=== PATIENT | female | born 1990 | race Caucasian/White ===

== ENCOUNTER 2020-05-04 07:32 | Inpatient (IN) | payer BC, SELFPAY ==
[2020-05-04] VITALS (24 sets, daily range): BP systolic 102–140; BP diastolic 52–85; PULSE 65–193; RESP 16; TEMP 36.6–37.1; BMI 28.3
[2020-05-04 08:41] LABS: Basophils Percent Auto 0.3 % (0.2-1.2); Eosinophils Absolute Auto 0.1 K/mm3 (0-0.3); Eosinophils Percent Auto 0.4 % (0-4.4); Hematocrit 34.4 % (37.0-47.0); Hemoglobin 11.8 g/dL (12.0-15.0); Immature Granulocyte Absolute 0.09 K/mm3 (0.00-0.031); Immature Granulocyte Percent A 0.8 % (0-0.5); Lymphocytes Percent Auto 24.5 % (18.3-44.2); Mean Corpuscular HGB Conc 34.3 g/dl (32-36); Mean Corpuscular Hemoglobin 31.7 pg (26-34); Mean Corpuscular Volume 92.5 fl (80-100); Mean Platelet Volume 9.5 fl (7.4-10.4); Monocytes Absolute Auto 0.8 K/mm3 (0.1-0.6); Monocytes Percent Auto 6.8 % (2.6-8.5); Neutrophils Absolute Auto 7.7 K/mm3 (1.3-6.7); Neutrophils Percent Auto 67.2 % (45.5-73.1); Platelet Count Result 299 k/mm3 (150-375); Red Blood Count 3.72 M/mm3 (4.2-5.4); Red Cell Distribution Width 12.2 % (11.5-14.5); White Blood Count 11.4 K/mm3 (4.5-10.0)
--- NOTE | 2020-05-04 08:42 | LDADM ---
This patient, Ruben Garces, was admitted to Labor/Delivery/Recovery 106 on 05/04/20 at 07:32. Plans for labor, pain management and were discussed with patient. Patient/family oriented to hospital policies and general routines including ID bracelet, bed and alarms, visiting hours, pain management, procedures, bathroom and other care routines, personal items, smoking policy, room service/diet and guest tray routines, security routines, and visiting hours. Patient/Family are encouraged to report perceived risks to care and to ask questions if they do not understand what they are told or what they should do. See OBIX for further documentation.
--- NOTE | 2020-05-04 11:03 | WPDOBADMIT ---
Obstetrics - Admit Note Admission Note: record reviewed. No pertinent additions to the history and/or any subsequent changes in the physical findings that are not consistent with the expected course of the were found. Additions to the history and/or subsequent changes in the physical findings follow. None.Here with [facility] in labor. Now 4 cm.
[2020-05-04] MEDS: OXYTOCIN 30 UNITS/NS 500 ML 30 UNITS/500 ML BAG IV CONT (16:23)
[2020-05-04] MEDS: LACTATED RINGERS 1,000 ML 125 ML IV CONT (16:23)
--- NOTE | 2020-05-04 16:32 | PM.OBPRVD ---
OB - Delivery Note Procedure Delivery date: 05/04/20 events: Labor Induction Intrapartal events: None Induction method: none Delivery monitor: external FHT and external uterine Route of delivery: Laceration description: Perineal - 2nd Degree Delivery repair: vicryl (3-0 vicryl) Specimen: No Estimated blood loss (mL): 100 Anesthesia type: Local Disposition: floor Baby Weeks of gestation at delivery: 38 gender: Male presentation: vertex Placenta delivery description: Spontaneous cord vessel description: 3 Vessels and Around Extremity x1 (foot) score one minute: 9 score five minutes: 9
--- NOTE | 2020-05-04 16:35 | P.DS_ITS ---
DS: Admitting Diagnosis Admitting Diagnosis Admitting Diagnosis: Labor DS: Discharge Diagnosis Discharge Diagnosis (1) (normal spontaneous vaginal delivery): Code(s): O80 - Encounter for full-term uncomplicated delivery Status: Acute OB - DS: Summary OB Procedures : Ultrasound OB Procedures Intrapartum: Spontaneous Vag Delivery OB Procedures: : None Peripartum Data Infant Delivery Method: Natural Vaginal Laceration description: Perineal - 2nd Degree complications: none Status at Discharge Functional status at discharge: independent ambulation Overall status at discharge: patient is progressing back to baseline Time Spent with Patient Time attestation: Total time spent providing and/or coordinating discharge services: DS: Data Data Completed and Pending Labs on day of discharge: Labs from last 24 hours 05/04/20 05/04/20 05/04/20 08:28 08:28 08:28 WBC 11.4 H RBC 3.72 L Hgb 11.8 L Hct 34.4 L MCV 92.5 MCH 31.7 MCHC 34.3 RDW 12.2 Plt Count 299 MPV 9.5 Immature Gran % (Auto) 0.8 H Neut % (Auto) 67.2 Lymph % (Auto) 24.5 [place] % (Auto) 6.8 Eos % (Auto) 0.4 Baso % (Auto) 0.3 Lymph # (Auto) 2.80 [place] # (Auto) 0.8 H Eos # (Auto) 0.1 Baso # (Auto) 0.0 Abs Immat Gran (auto) 0.09 H Absolute Neuts (auto) 7.7 H Absolute Nucleated RBC 0.0 Nucleated RBC % 0.0 RPR Pending Blood Type O Positive Antibody Screen Negative Discharge Plan Discharge Attending physician on discharge: Ericka Whitney Discharging Clinician: Ericka Whitney Anticipated Discharge Date/Time: 05/06/20 16:35 Patient Disposition: Home, Self-Care Activity: may shower and pelvic rest Diet: regular Patient Instructions: Antibiotic Form Stand Alone Forms: General Discharge Information Follow-up/Referrals: Ericka Whitney MD [Physician] - 6 Weeks Discharge Medications: New norethindrone (contraceptive) 0.35 mg tablet 0.35 mg PO DAILY Qty: 84 RF: 3 Continued docusate sodium [Colace] 100 mg Capsule 100 mg PO DAILY RF: 0 PNV cmb#95-ferrous fumarate-FA [] 28 mg iron- 800 mcg Tablet 1 tablet PO DAILY RF: 0 Fiber Gummies 2 gram Tablet,Chewable 2 g PO RF: 0 Digestive Health Probiotic 10 billion cell Capsule 2 cap PO RF: 0 ergocalciferol (vitamin D2) [Vitamin D2] 1,250 mcg (50,000 unit) Capsule 1,250 mcg PO 2XW RF: 0 Discontinued ferrous sulfate 325 mg (65 mg iron) Tablet 325 mg PO BID RF: 0 Date of admission: 05/04/20 07:32 Primary Care Provider: Blanca,Kelsie De La Cruz Admitting Provider: Ericka Whitney Attending physician on admission: Ericka Whitney Condition: Stable
[2020-05-04] MEDS: OXYTOCIN 30 UNITS/NS 500 ML 30 UNITS/500 ML BAG 125 UNITS IV CONT (16:58)
[2020-05-04] MEDS: WITCH HAZEL 40 PADS 1 PAD TOPICAL (19:00)
[2020-05-04] MEDS: BENZOCAINE 20% AER SPR (*SP) 56 GM CAN 1 SPRAY TOPICAL (19:01)
[2020-05-05 05:34] LABS: Hematocrit 35.3 % (37.0-47.0); Hemoglobin 11.9 g/dL (12.0-15.0)
--- NOTE | 2020-05-05 07:15 | PC.NURSE ---
PT introductions made and plan of care discussed per post , pain management, breast pumping, bottle feeding, daily care activities. PT verbalized understanding of such care.
[2020-05-05 07:24] LABS: Rapid Plasma Reagin Non-Reactive (NonReactive)
[2020-05-05 07:50] VITALS: BP 126/79; PULSE 88; RESP 18; TEMP 36.3; O2SAT 100
[2020-05-05 08:22] VITALS: PULSE 88; RESP 18; O2SAT 100
[2020-05-05] MEDS: MULTIVIT/MIN/PREN/FOL AC/IRON TABLET 1 TAB PO (08:22)
[2020-05-05] MEDS: DOCUSATE SODIUM 100 MG CAPSULE PO ×2 (08:22→17:55)
[2020-05-05] MEDS: ACETAMINOPHEN 325 MG TABLET 650 MG PO ×3 (08:23→17:53)
[2020-05-05] MEDS: IBUPROFEN 600 MG TABLET PO ×2 (08:24→17:54)
--- NOTE | 2020-05-05 09:50 | PC.NURSE ---
Consult with pt., mother states she plans to pump and bottle feed. Reviewed breast pump care and usage, pumping schedule, nipple care, and collection and storage of breast milk. Discussed stimulation of milk supply should transition in day 2-4, stressed pumping to stimulate supply and this time and only drops of colostrum may be noted each session, increasing within a few days. Encouraged [id number], breast massage and manual expression to stimulate supply. Pumping log provided and reviewed. Assessed patient for correct flange size, placement and draw. Patient verbalizes and demonstrates understanding of instructions. Mother reports she is pumping without difficulties or discomfort.
--- NOTE | 2020-05-05 16:15 | P.PNOB_ITS ---
OB - PN: Subj Subjective Date/time seen: 05/05/20 16:15 doing well no complaints OB - PN: Obj Data Labs CBC & Chem 7: 05/05/20 05:17 Labs: Laboratory Results - last 24 hr 05/04/20 05/05/20 08:28 05:17 Hgb 11.9 L Hct 35.3 L RPR Non-reactive OB - PN A/P Assessment and Plan (1) (normal spontaneous vaginal delivery): Code(s): O80 - Encounter for full-term uncomplicated delivery Status: Acute Assessment and Plan: continue with post care. Time Spent With Patient Time: Total time spent is greater than 50% in coordination of care (as docume nted) at patient's floor/unit and/or counseling patient: Exam GI: Other: ff below umbilicus
[2020-05-05 20:19] VITALS: BP 123/69; PULSE 81; RESP 17; TEMP 36.8
--- NOTE | 2020-05-06 07:21 | PM.OBPNVD ---
OB - PN: Subj Subjective Date/time seen: 05/06/20 07:21 Patient comments: no complaints and pain well controlled baby status: doing well OB - PN: Obj Data Labs CBC & Chem 7: 05/05/20 05:17 Labs: Laboratory Results - last 24 hr 05/04/20 08:28 RPR Non-reactive OB - PN A/P Plan day: 2 Plan: routine care, discharge home, follow up 6 weeks and other (plans micronor) Time Spent With Patient Time: Total time spent is greater than 50% in coordination of care (as documented) at patient's floor/unit and/or counseling patient: Exam : Bimanual exam- vagina & uterus: other (Uterus firm, nt @U)
[2020-05-06] MEDS: IBUPROFEN 600 MG TABLET PO (07:46)
[2020-05-06] MEDS: DOCUSATE SODIUM 100 MG CAPSULE PO (07:46)
[2020-05-06] MEDS: MULTIVIT/MIN/PREN/FOL AC/IRON TABLET 1 TAB PO (07:46)
[2020-05-06] MEDS: ACETAMINOPHEN 325 MG TABLET 650 MG PO (07:47)
[2020-05-06] MEDS: WITCH HAZEL 40 PADS 1 PAD TOPICAL (07:48)
[2020-05-06 07:50] VITALS: BP 113/77; PULSE 91; RESP 18; TEMP 36.6; O2SAT 100
--- NOTE | 2020-05-06 10:45 | PC.NURSE ---
Consult with pt., mother reports she wishes to put infant to breast before discharge. Mother was told this will stimulate milk supply. Mother does not plan to continue to put to breast once her milk is in she will pump and bottle feed. Reviewed feeding cues, frequencies, duration of feedings, feeding elimination flow sheet, and signs of adequate intake. Demonstrated stimulation techniques to wake infant for feeding. Assisted with to breast. Reviewed positioning/alignment in cross cradle, holding breast in U hold and guided asymmetrical latch on. Infant was able to latch correctly with first attempt. nursed eagerly, with steady draws and occasional swallowing noted. Reviewed signs of a correct latch, effective nursing and suck swallow ratio. Infant was able to maintain latch without discomfort to mother. Nipple care reviewed. Suggested mother allow to breastfeed 15-20 minutes and then supplement and continue to pump 10 minutes. Advised if she is not putting infant to breast mother should increase pumping to 20 minutes each session. Mother is feeding as required and waking infant to feed if needed. Infantis currently meeting outcomes for weight, output, jaundice and feeding frequencies. Mother states she feels confident to continue with current feeding plan at home. Reviewed transition to breast milk, signs of adequate intake, and engorgement/relief. Instructed to call ICP if intake/output less than required. Reviewed regular medications mother is taking. Information provided per [place]. Reviewed community resources on the [facility] website and in the Mom/Baby guide. Information on outpatient services provided. Mother has no further questions at this time.
--- NOTE | 2020-05-06 15:53 | PC.NURSE ---
[id number] Patient and FOB viewed the discharge video Mother & Baby Care, The First Two Weeks . Patient was given the opportunity and encouraged to ask questions. Patient verbalized understanding of information shared and has been given the mother/baby guide for home reference.
[2020-05-07 09:20] VITALS: BP 121/49; PULSE 77; RESP 20; TEMP 36.8; O2SAT 98
== END 2020-05-06 13:30 | disposition home or self-care (01) | DRG 807 ==
LOC: ANHLDR 16:36 → ANHOB2 19:39
PROVIDERS: Admitting Provider Obstetrics & Gynecology Gynecology; PCP Internal Medicine; Visit Provider Obstetrics & Gynecology Gynecology
DX: O69.82X0 Labor and delivery complicated by other cord entanglement, without compression, not applicable or unspecified (principal); Z37.0 Single live birth; Z3A.38 38 weeks gestation of pregnancy; O70.1 Second degree perineal laceration during delivery; O99.344 Other mental disorders complicating childbirth; F98.8 Other specified behavioral and emotional disorders with onset usually occurring in childhood and adolescence
CPT/HCPCS: 36415; 85014; 85018; 85025; 86592; 86850; 86900; 86901; A9270; J2590; J7120

== ENCOUNTER 2022-09-26 16:46 | Outpatient (CLI) | payer OTHER, SELFPAY | END 2022-09-26 16:47 | disposition home or self-care (01) | LOC: ANHLAB 16:49 | PROVIDERS: PCP Internal Medicine; Visit Provider Obstetrics & Gynecology Gynecology | DX: R79.9 Abnormal finding of blood chemistry, unspecified (principal) | CPT/HCPCS: 36415; 86850; 86900; 86901 ==

== ENCOUNTER 2023-02-08 06:54 | Inpatient (IN) | payer OTHER, SELFPAY ==
[2023-02-08] VITALS (23 sets, daily range): BP systolic 104–145; BP diastolic 43–104; PULSE 71–122; RESP 16–20; TEMP 36.3–37.6; O2SAT 98–100; BMI 31.3
--- NOTE | 2023-02-08 07:23 | LDADM ---
This patient, Ruben Garces, was admitted to Labor/Delivery/Recovery 106 on 02/08/23 at 06:54. Plans for labor, pain management and were discussed with patient. Patient/family oriented to hospital policies and general routines including ID bracelet, bed and alarms, visiting hours, pain management, procedures, bathroom and other care routines, personal items, smoking policy, room service/diet and guest tray routines, security routines, and visiting hours. Patient/Family are encouraged to report perceived risks to care and to ask questions if they do not understand what they are told or what they should do. See OBIX for further documentation.
[2023-02-08 07:41] LABS: Basophils Absolute Auto 0.1 K/mm3 (0.0-0.1); Basophils Percent Auto 0.4 % (0.2-1.2); Eosinophils Absolute Auto 0.1 K/mm3 (0-0.3); Eosinophils Percent Auto 0.4 % (0-4.4); Hematocrit 36.8 % (37.0-47.0); Hemoglobin 12.6 g/dL (12.0-15.0); Immature Granulocyte Absolute 0.21 K/mm3 (0.00-0.031); Immature Granulocyte Percent A 1.6 % (0-0.5); Lymphocytes Percent Auto 18.7 % (18.3-44.2); Mean Corpuscular HGB Conc 34.2 g/dl (32-36); Mean Corpuscular Hemoglobin 32.1 pg (26-34); Mean Corpuscular Volume 93.6 fl (80-100); Mean Platelet Volume 9.1 fl (7.4-10.4); Monocytes Percent Auto 7.5 % (2.6-8.5); Neutrophils Absolute Auto 9.6 K/mm3 (1.3-6.7); Neutrophils Percent Auto 71.4 % (45.5-73.1); Platelet Count Result 302 k/mm3 (150-375); Red Blood Count 3.93 M/mm3 (4.2-5.4); Red Cell Distribution Width 12.3 % (11.5-14.5); White Blood Count 13.4 K/mm3 (4.5-10.0)
[2023-02-08] MEDS: LACTATED RINGERS 1,000 ML 125 ML IV CONT (07:43)
--- NOTE | 2023-02-08 07:50 | WPDOBADMIT ---
Obstetrics - Admit Note Admission Note: record reviewed. No pertinent additions to the history and/or any subsequent changes in the physical findings that are not consistent with the expected course of the were found. Additions to the history and/or subsequent changes in the physical findings follow. None.Here in labor. 7 cm with bbow and leaking on admit. 9 cm on my exam and bbow ruptured. FHTs category I. Expectant mgmt.
[2023-02-08] MEDS: OXYTOCIN 30 UNITS/NS 500 ML 30 UNITS/500 ML BAG 999 UNITS IV CONT (08:05)
--- NOTE | 2023-02-08 08:12 | PM.OBPRVD ---
OB - Delivery Note Procedure Delivery date: 02/08/23 Procedure: Induction method: None Delivery monitor: External FHT and External Uterine Route of delivery: Laceration Description: Perineal - 2nd Degree Delivery repair: vicryl (3-0) Specimen: No Quantitative Blood Loss (ml): 100 Anesthesia type: Local Disposition: Floor Baby Date of : 02/08/23 Weeks of gestation at delivery: 38 gender: Female presentation: vertex position: Right Occiput Anterior Placenta delivery description: Spontaneous Cord Vessel Description: 3 Vessels score one minute: 9 score five minutes: 9
--- NOTE | 2023-02-08 08:13 | PM.OBDSVD ---
DS: Admitting Diagnosis Discharge Date 02/09/23 Admitting Diagnosis labor at 38 4/7 wks DS: Discharge Diagnosis Discharge Diagnosis (1) (normal spontaneous vaginal delivery): Code(s): O80 - Encounter for full-term uncomplicated delivery Status: Acute OB - DS: Summary OB Procedures : Ultrasound OB Procedures Intrapartum: Spontaneous Vag Delivery OB Procedures: : None Peripartum Data Delivery Method: Natural Vaginal Laceration Description: Perineal - 2nd Degree complications: none Status at Discharge Functional status at discharge: independent ambulation Overall status at discharge: patient is progressing back to baseline Time Spent with Patient Time attestation: Total time spent providing and/or coordinating discharge services: DS: Data Data Completed and Pending Labs on day of discharge: Labs from last 24 hours 02/08/23 07:28 WBC 13.4 H RBC 3.93 L Hgb 12.6 Hct 36.8 L MCV 93.6 MCH 32.1 MCHC 34.2 RDW 12.3 Plt Count 302 MPV 9.1 Immature Gran % (Auto) 1.6 H Neut % (Auto) 71.4 Lymph % (Auto) 18.7 [place] % (Auto) 7.5 Eos % (Auto) 0.4 Baso % (Auto) 0.4 Lymph # (Auto) 2.50 [place] # (Auto) 1.0 H Eos # (Auto) 0.1 Baso # (Auto) 0.1 Abs Immat Gran (auto) 0.21 H Absolute Neuts (auto) 9.6 H Absolute Nucleated RBC 0.0 Nucleated RBC % 0.0 RPR Pending Discharge Plan Discharge Attending physician on discharge: Ericka Whitney Discharging Clinician: Ericka Whitney Anticipated Discharge Date/Time: 02/09/23 08:13 Patient Disposition: Home, Self-Care Activity: may shower and pelvic rest Diet: regular Patient Instructions: Antibiotic Form Stand Alone Forms: General Discharge Information Follow-up/Referrals: Ericka Whitney MD [Physician] - 6 Weeks Discharge Medications: Continued docusate sodium [Colace] 100 mg Capsule 100 mg PO DAILY PNV cmb#95-ferrous fumarate-FA [] 28 mg iron- 800 mcg Tablet 1 tablet PO DAILY ergocalciferol (vitamin D2) [Vitamin D2] 1,250 mcg (50,000 unit) Capsule 1,250 mcg PO MONTHLY polyethylene glycol 3350 [Miralax] 17 gram Powder In Packet 17 g PO DAILY famotidine 20 mg Tablet 20 mg PO BID Discontinued aspirin 81 mg Tablet 81 mg PO DAILY Date of admission: 02/08/23 06:54 Primary Care Provider: Noel,Aidan Youngblood Admitting Provider: Ericka Whitney Attending physician on admission: Ericka Whitney Condition: Stable
[2023-02-08] MEDS: OXYTOCIN 30 UNITS/NS 500 ML 30 UNITS/500 ML BAG 125 UNITS IV CONT (08:39)
[2023-02-08] MEDS: ACETAMINOPHEN 325 MG TABLET 650 MG PO (09:07)
[2023-02-08] MEDS: METHYLERGONOVINE MALEATE 0.2 MG/ML VIAL IM (09:42)
[2023-02-08] MEDS: IBUPROFEN 600 MG TABLET PO ×2 (09:55→17:04)
[2023-02-08] MEDS: BENZOCAINE 20% AER SPR (*SP) 56 GM CAN 1 SPRAY TOPICAL (09:58)
[2023-02-08] MEDS: WITCH HAZEL 40 PADS 1 PAD TOPICAL (09:58)
[2023-02-08] MEDS: MULTIVIT/MIN/PREN/FOL AC/IRON TABLET 1 TAB PO (10:16)
--- NOTE | 2023-02-08 15:55 | OBPPTRN ---
Patient transferred to post room #277 via wheelchair. Support person present. Oriented to unit, room, information board, rooming in, admission packet and security measures. Patient verbalizes understanding.
[2023-02-08] MEDS: DOCUSATE SODIUM 100 MG CAPSULE PO (17:04)
[2023-02-09 04:45] VITALS: BP 107/60; PULSE 80; RESP 14; TEMP 36.2
[2023-02-09 07:25] VITALS: BP 111/71; PULSE 80; RESP 18; TEMP 36.4; O2SAT 99
--- NOTE | 2023-02-09 07:30 | PM.OBPNVD ---
OB - PN: Subj Subjective Date/time seen: 02/09/23 07:30 Patient comments: no complaints and pain well controlled baby status: doing well OB - PN: Obj Data Labs 02/08/23 07:28 Labs: Laboratory Results - last 24 hr 02/08/23 07:28 WBC 13.4 H RBC 3.93 L Hgb 12.6 Hct 36.8 L MCV 93.6 MCH 32.1 MCHC 34.2 RDW 12.3 Plt Count 302 MPV 9.1 Immature Gran % (Auto) 1.6 H Neut % (Auto) 71.4 Lymph % (Auto) 18.7 [place] % (Auto) 7.5 Eos % (Auto) 0.4 Baso % (Auto) 0.4 Lymph # (Auto) 2.50 [place] # (Auto) 1.0 H Eos # (Auto) 0.1 Baso # (Auto) 0.1 Abs Immat Gran (auto) 0.21 H Absolute Neuts (auto) 9.6 H Absolute Nucleated RBC 0.0 Nucleated RBC % 0.0 Blood Type O Positive Antibody Screen Positive RUBIA, IgG Interpret Not Performed RUBIA, Poly Interpret Neg RUBIA, Complement Interp Not Performed OB - PN A/P Plan day: 1 Plan: routine care, discharge home, follow up 6 weeks and other (plans vasectomy) Time Spent With Patient Time: Total time spent is greater than 50% in coordination of care (as documented) at patient's floor/unit and/or counseling patient: Exam : Bimanual exam- vagina & uterus: other (Uterus firm, nt @U)
[2023-02-09 08:42] LABS: Hematocrit 28.2 % (37.0-47.0); Hemoglobin 9.2 g/dL (12.0-15.0)
[2023-02-09] MEDS: POLYSACCHARIDE IRON COMPLEX 150 MG CAPSULE PO (09:44)
[2023-02-09] MEDS: DOCUSATE SODIUM 100 MG CAPSULE PO (09:44)
[2023-02-09] MEDS: MULTIVIT/MIN/PREN/FOL AC/IRON TABLET 1 TAB PO (09:44)
[2023-02-09 15:51] LABS: Rapid Plasma Reagin Non-Reactive (NonReactive)
[2023-02-10 15:47] VITALS: BP 112/59; PULSE 80; RESP 18; TEMP 36.7; O2SAT 100
== END 2023-02-09 14:17 | disposition home or self-care (01) | DRG 807 ==
LOC: ANHLDR 08:28 → ANHOBPP 11:28 → ANHOB2 16:00
PROVIDERS: Admitting Provider Obstetrics & Gynecology Gynecology; PCP Family Medicine; Visit Provider Obstetrics & Gynecology Gynecology
DX: O36.0130 Maternal care for anti-D [Rh] antibodies, third trimester, not applicable or unspecified (principal); Z37.0 Single live birth; O70.1 Second degree perineal laceration during delivery; Z3A.39 39 weeks gestation of pregnancy
CPT/HCPCS: 36415; 84112; 85014; 85018; 85025; 86592; 86850; 86860; 86870; 86880; 86900; 86901; 86902; 86971; A9270; J2210; J2590; J7120